=== PATIENT | female | born 1995 | race American Indian/Alaskan Native ===

== ENCOUNTER 2017-05-28 19:01 | Emergency (ER) | payer BC, MEDICAID ==
[2017-05-28 20:18] VITALS: BP 118/74
[2017-05-28 21:21] LABS: Basophils % (Auto) 0.3 % (0.0-1.8); Eosinophils % (Auto) 1.6 % (0.0-4.3); Hematocrit 34.7 % (30.3-42.9); Hemoglobin 11.5 gm/dl (10.1-14.3); Mean Corpuscular HGB Conc 33 % (30-34); Mean Corpuscular Volume 77 fl (79-97); Platelet Count 235 K/mm3 (140-440); White Blood Count 12.2 K/mm3 (4.5-11.0)
[2017-05-28 21:24] LABS: Mean Corpuscular Hemoglobin 26 pg (28-32)
[2017-05-29 00:23] LABS: Bacteria,Urine 1+ /HPF (Negative); Bilirubin,Urine NEG (Negative); Blood,Urine NEG (Negative); Ketones,Urine NEG (Negative); Leukocyte Esterase,Urine TR (Negative); Mucus,Urine 3+ /HPF; Nitrite,Urine POS (Negative); Protein,Urine <15 mg/dL mg/dL (Negative); Urobilinogen,Urine < 2.0 mg/dL (<2.0)
== END 2017-05-29 00:12 | disposition left against medical advice (07) ==
LOC: ED 19:01
DX: Z53.21 Procedure and treatment not carried out due to patient leaving prior to being seen by health care provider (principal)
CPT/HCPCS: 36415; 81001; 84702; 85025; 86850; 86900; 86901

== ENCOUNTER 2017-06-18 13:53 | Emergency (ER) | payer MEDICAID ==
[2017-06-18 14:06] VITALS: BP 127/71
--- NOTE | 2017-06-18 15:29 | Ultrasound Report ---
ULTRASOUND OB LESS THAN 14 WEEKS - TRANSABDOMINAL AND TRANSVAGINAL INDICATION: Intrauterine , having pain. COMPARISON: None similar at this institution. FINDINGS: Transabdominal and transvaginal pelvic sonography performed in this patient with LMP of 04/02/2017 and estimated menstrual age of 11 weeks and zero days. It demonstrates an anteverted, gravid uterus estimated at 10 x 6.9 x 7.9 cm with a single, viable intrauterine gestation with heart rate of 166 beats per minute. Placenta appears anterior. Mean crown-rump length of 4.2 cm corresponds to 11 weeks and zero days. Cervix appears closed. A nonspecific 1.6 x 1 cm paracervical cystic focus noted posterolaterally to the right, endovaginal image 25. No significant pelvic free fluid. Unremarkable ovaries, approximately 3.1 x 1.9 x 2.5 cm on the right and 3.4 x 1.7 x 3.8 cm on the left. CONCLUSION: 1. Single, live intrauterine gestation with ultrasound estimated age of 11 weeks and zero days and AUGUSTINA of 01/07/2018. 2. Other findings, as above. Thank you for the opportunity to participate in this patient's care.
== END 2017-06-18 20:09 | disposition left against medical advice (07) ==
LOC: ED 13:53
DX: O26.891 Other specified pregnancy related conditions, first trimester (principal); R10.2 Pelvic and perineal pain; Z3A.11 11 weeks gestation of pregnancy; Z53.21 Procedure and treatment not carried out due to patient leaving prior to being seen by health care provider; V89.2XXA Person injured in unspecified motor-vehicle accident, traffic, initial encounter; Y93.89 Activity, other specified; Y99.8 Other external cause status; Y92.89 Other specified places as the place of occurrence of the external cause
CPT/HCPCS: 36415; 76801; 76817; 84702

== ENCOUNTER 2017-09-22 12:19 | Emergency (ER) | payer MEDICAID ==
[2017-09-22 12:36] VITALS: BP 111/56
--- NOTE | 2017-09-22 13:58 | Emergency Department Report ---
Blank Doc - Documentation Documentation: Is a 22-year-old female who is presenting with right sided abdominal discomfort epigastric discomfort and nausea and hematuria. Patient is 25 weeks and does feel rhythmic crampiness. Patient will be sent to L&D at this time
[2017-09-22 14:18] LABS: Bacteria,Urine 3+ /HPF (Negative); Bilirubin,Urine NEG (Negative); Blood,Urine MOD (Negative); Color,Urine Yellow (Yellow); Mucus,Urine 3+ /HPF; Nitrite,Urine POS (Negative); Urobilinogen,Urine < 2.0 mg/dL (<2.0)
[2017-09-22 14:19] LABS: RBC,Urine > 182.0 /HPF (0.0-6.0); WBC,Urine > 182.0 /HPF (0.0-6.0)
== END 2017-09-22 16:11 | disposition home or self-care (01) ==
LOC: ED 12:19
DX: O26.892 Other specified pregnancy related conditions, second trimester (principal); Z3A.25 25 weeks gestation of pregnancy
CPT/HCPCS: 81001; 99283

== ENCOUNTER 2017-09-22 14:22 | Outpatient (CLI) | payer MEDICAID ==
[2017-09-22 15:01] VITALS: BP 99/59
[2017-09-22 15:46] LABS: Bacteria,Urine 4+ /HPF (Negative); Bilirubin,Urine NEG (Negative); Blood,Urine MOD (Negative); Color,Urine Yellow (Yellow); Mucus,Urine 2+ /HPF; Nitrite,Urine NEG (Negative); Urobilinogen,Urine < 2.0 mg/dL (<2.0)
[2017-09-22] MEDS ORDERED: LACTATED RINGERS 500 ML IV ONE (16:10)
== END 2017-09-22 16:31 | disposition home or self-care (01) ==
LOC: TRG 14:22
PROVIDERS: ATTEND Obstetrics & Gynecology
DX: O47.02 False labor before 37 completed weeks of gestation, second trimester (principal); Z3A.25 25 weeks gestation of pregnancy
CPT/HCPCS: 81001

== ENCOUNTER 2018-01-07 04:41 | Outpatient (CLI) | payer MEDICAID ==
[2018-01-07 04:59] VITALS: BP 131/70
[2018-01-07] MEDS ORDERED: LACTATED RINGERS 1,000 ML IV ONE (05:11)
--- NOTE | 2018-01-07 06:17 | Ultrasound Report ---
FINAL REPORT PROCEDURE: US OB BPP WO NON-STRESS TECHNIQUE: Real-time limited sonographic examination was performed for evaluation of size, position, heartbeat, fluid volume for each fetus with image documentation (1 or more fetuses). CPT 02614 HISTORY: wellbeing COMPARISON: No prior studies are available for comparison. FINDINGS: breathing movements: 2. movements: 2. posterior and tone: 2. Qualitative amniotic fluid volume: 2. IMPRESSION: biophysical profile: 03/10.
[2018-01-07 06:48] LABS: Amphetamine Screen,Urine PRESUMPTIVE NEGATIVE; Benzodiazepines Screen,Urine PRESUMPTIVE NEGATIVE; Cannabinoid Screen,Urine PRESUMPTIVE NEGATIVE; Cocaine Screen,Urine PRESUMPTIVE NEGATIVE; Methadone Screen,Urine PRESUMPTIVE NEGATIVE; Opiate Screen,Urine PRESUMPTIVE NEGATIVE
== END 2018-01-07 07:00 | disposition home or self-care (01) ==
LOC: TRG 04:41
PROVIDERS: ATTEND Obstetrics & Gynecology
DX: O47.1 False labor at or after 37 completed weeks of gestation (principal); Z3A.40 40 weeks gestation of pregnancy; Z79.899 Other long term (current) drug therapy
CPT/HCPCS: 59025; 76819; 80307; J7120

== ENCOUNTER 2018-01-22 23:20 | Emergency (ER) | payer MEDICAID ==
[2018-01-23 02:45] LABS: Basophils # (Auto) 0.1 K/mm3 (0.0-0.1); Basophils % (Auto) 0.8 % (0.0-1.8); Eosinophils # (Auto) 0.3 K/mm3 (0.0-0.4); Eosinophils % (Auto) 3.1 % (0.0-4.3); Hematocrit 34.4 % (30.3-42.9); Lymphocytes # (Auto) 2.7 K/mm3 (1.2-5.4); Lymphocytes % (Auto) 26.4 % (13.4-35.0); Mean Corpuscular HGB Conc 32 % (30-34); Mean Corpuscular Hemoglobin 24 pg (28-32); Mean Corpuscular Volume 74 fl (79-97); Monocytes # (Auto) 0.7 K/mm3 (0.0-0.8); Monocytes % (Auto) 6.7 % (0.0-7.3); Platelet Count 395 K/mm3 (140-440); Red Blood Count 4.63 M/mm3 (3.65-5.03); Red Cell Distribution Width 16.3 % (13.2-15.2)
[2018-01-23 03:37] LABS: BUN/Creatinine Ratio 27; Blood Urea Nitrogen 19 mg/dL (7-17); Calcium 8.9 mg/dL (8.4-10.2); Hemolysis Index 0
--- NOTE | 2018-01-23 08:51 | Emergency Department Report ---
- General Chief Complaint: Wound/Laceration Stated Complaint: CESECTION OPEN UP Time Seen by Provider: 01/23/18 08:51 Source: patient Mode of arrival: Ambulatory Limitations: No Limitations - History of Present Illness Initial Comments: 22-year-old female 6 miscarriages presents with complaint of area of recent "opening up" within the last week. She is awake alert and oriented 3 not in acute distress. Denies fevers chills nausea vomiting or abdominal pain. Patient states that 10 days ago she delivered a female via at [facility] in [facility]. Procedure was done by Dr. Stockton. She states she was traveling at the time she needed an emergent C- section. States that she follows with [facility] here in [facility]. Patient states that there is a small area which appears to be exposed with a piece of suture sticking out of it on the left aspect of her incision site. Patient denies any purulent drainage or erythema. Adamantly denies any fevers or chills. She is currently breast-feeding. Onset/Timin -: days(s) Location: abdomen (left sided c section dehiscence) Associated Symptoms: none - Related Data Previous Rx's Medication Instructions Recorded Last Taken Type Cephalexin [Keflex] 500 mg PO Q12HR #10 cap 01/23/18 Unknown Rx Allergies Allergy/AdvReac Type Severity Reaction Status Date / Time No Known Allergies Allergy Verified 09/22/17 15:08 ED Review of Systems ROS: Stated complaint: CESECTION OPEN UP Other details as noted in HPI Constitutional: denies: chills, fever Eyes: denies: eye pain, eye discharge, vision change ENT: denies: ear pain, throat pain Respiratory: denies: cough, shortness of breath, wheezing Cardiovascular: denies: chest pain, palpitations Endocrine: no symptoms reported Gastrointestinal: as per HPI. denies: abdominal pain, nausea, diarrhea Genitourinary: denies: urgency, dysuria, discharge Musculoskeletal: denies: back pain, joint swelling, arthralgia Skin: denies: rash, lesions Neurological: denies: headache, weakness, paresthesias Psychiatric: denies: anxiety, depression Hematological/Lymphatic: denies: easy bleeding, easy bruising ED Past Medical Hx - Past Medical History Hx Hypertension: No Hx Congestive Heart Failure: No Hx Diabetes: No Hx Deep Vein Thrombosis: No Hx Renal Disease: No Hx Sickle Cell Disease: No Hx Seizures: Yes (Last seizure ~2011) Hx Asthma: ("pre-asthma") Hx COPD: No Hx HIV: No - Surgical History Additional Surgical History: - Social History Smoking Status: Never Smoker Substance Use Type: None - Medications Home Medications: Home Medications Medication Instructions Recorded Confirmed Last Taken Type Cephalexin [Keflex] 500 mg PO Q12HR #10 cap 01/23/18 Unknown Rx ED Physical Exam - General Limitations: No Limitations General appearance: alert, in no apparent distress - Head Head exam: Present: atraumatic, normocephalic - Eye Eye exam: Present: normal appearance - ENT ENT exam: Present: mucous membranes moist - Neck Neck exam: Present: normal inspection - Respiratory Respiratory exam: Present: normal lung sounds bilaterally. Absent: respiratory distress - Cardiovascular Cardiovascular Exam: Present: regular rate, normal rhythm. Absent: systolic murmur, diastolic murmur, rubs, gallop - GI/Abdominal GI/Abdominal exam: Present: soft (abdomen is soft nontender nondistended. No abscess no purulent drainage no erythema or induration), normal bowel sounds, other (patient has a visible Pfannenstiel incision and has approximately 1-2 cm area of dehisced wound. No apparent signs of infection on clinical exam no foul odor) - Extremities Exam Extremities exam: Present: normal inspection - Back Exam Back exam: Present: normal inspection - Neurological Exam Neurological exam: Present: alert, oriented X3 - Psychiatric Psychiatric exam: Present: normal affect, normal mood - Skin Skin exam: Present: warm, dry, intact, normal color. Absent: rash - Expanded Skin Exam Expanded 1 - Small area of slight dehiscence less than 2 cm here with piece of absorbable suture sticking out. No bleeding no purulent drainage nor erythema nor induration nor foul odor ED Course Vital Signs 01/23/18 01:44 Temperature 97.7 F Pulse Rate 76 Respiratory 18 Rate Blood Pressure 115/72 O2 Sat by Pulse 98 Oximetry ED Medical Decision Making - Lab Data Result diagrams: 01/23/18 02:26 01/23/18 02:26 - Medical Decision Making A/P: Surgical site wound dehiscence 1-area is small and noninfected. Dr. Curtis also examined area 2-tiny less than 1 cm portion of extruding absorbable suture slipped off 3-I informed me [facility] of patient's clinical scenario and discussed it with Dr. Fermin. Patient can follow-up in office this week 4- short course of Keflex as per my discussion with [facility]. Symmetrically asked about the safety of Keflex and cephalosporins during breast-feeding. Dr. Fermin reassured me that this is acceptable. As per [email or web address] recommendations I advised mother to look out for any signs of diarrhea or GI disturbances and . Mother is also giving baby formula in addition to breast feeding. I advised patient to return to the ED for any abdominal pain fever chills nausea vomiting or purulent drainage or induration at wound site. I informed patient that it will heal slowly. Dr. Curtis also discussed this with her. Critical care attestation.: If time is entered above; I have spent that time in minutes in the direct care of this critically ill patient, excluding procedure time. ED Disposition Clinical Impression: section wound complication, Wound dehiscence, Disposition: -01 TO HOME OR SELFCARE Is pt being admited?: No Does the pt Need Aspirin: No Condition: Stable Instructions: Acute Wound Care (ED), Wound Dehiscence (ED) Prescriptions: Cephalexin [Keflex] 500 mg PO Q12HR #10 cap Referrals: [facility] [Provider Group] - 3-5 Days BRYN ROTH MD [Staff Physician] - 3-5 Days Forms: Accompanied Note, Work/School Release Form(ED) Time of Disposition: 09:57
--- NOTE | 2018-01-23 09:22 | Emergency Department Report ---
Blank Doc - Documentation Documentation: Patient is a 22-year-old female S1 week status post presented with a small wound dehiscence. There is some sutures that are visualized at the area of the wound dehiscence. There is no signs or symptoms of any infection. The sutures will be clipped and the wound Steri-Stripped and the patient be discharged home. I did do a [id number] with this patient and agree with the SUSY documentation by Mr. Rios.
[2018-01-23 10:24] VITALS: BP 141/77
[2018-01-23 14:34] LABS: Bilirubin,Urine NEG (Negative); Blood,Urine LG (Negative); Color,Urine Yellow (Yellow); Mucus,Urine FEW /HPF; Protein,Urine <15 mg/dL mg/dL (Negative); Urobilinogen,Urine < 2.0 mg/dL (<2.0)
== END 2018-01-23 10:29 | disposition home or self-care (01) ==
LOC: ED 23:20
DX: T81.30XA Disruption of wound, unspecified, initial encounter (principal); Y92.89 Other specified places as the place of occurrence of the external cause
CPT/HCPCS: 36415; 80048; 81001; 85025